=== PATIENT | male | born 1990 | race Caucasian/White ===

== ENCOUNTER 2018-09-11 17:35 | Emergency (ER) | payer SELFPAY ==
[2018-09-11 17:54] VITALS: BP 135/70; PULSE 69; RESP 16; TEMP 37; O2SAT 96
--- NOTE | 2018-09-11 18:34 | W.ED.GENAD ---
Discharge Plan Disposition Patient Disposition: HOME Condition: Good Discharge Details Chief Complaint: RespSymp Clinical Impression: URI (upper respiratory infection), Asthma Primary Care Provider: Deisy,Local ED Provider: [facility] Home Meds and New Rx's Prescriptions: New azithromycin 250 mg tablet 250 mg PO DAILY Qty: 6 RF: 0 prednisone 50 MG tablet 50 mg PO DAILY Qty: 10 RF: 0 No Action Ventolin HFA 90 mcg/actuation Hfa Aerosol Inhaler 2 puff RF: 0 Discharge Instructions Instructions: Asthma (ED), Acute Bronchitis (ED) Additional Instructions: Please take the medication as directed. Please take your inhaler every 4-6 hours for the next 2 days. if you notice any worsening of your symptoms, or any new symptoms such as vomiting, diarrhea, fever, chills, shortness of breath, chest pain, numbness, weakness, or fainting , please return immediately to the emergency department for reevaluation. Please follow up with your primary care provider as soon as possible for reassessment and reevaluation. As always, it was a pleasure participating in your medical care today. Discharge Data Discharge Date/Time-TO BE ENTERED AT DEPARTURE: 09/11/18 18:50 Medical Decision Making Is a 28-year-old male with a past medical history of asthma who presents for evaluation of upper respiratory complaints. He has had a runny nose, congestion, and a cough with green sputum for the last 3 weeks. Symptoms are slightly improved with inhaler. Patient states that his symptoms feel like they are just not getting any better. Physical exam demonstrates no significant abnormalities. Vital signs are reassuring. I feel that because of the longevity of his symptoms he is suffering from a combination of an asthma exacerbation requiring steroids in conjunction with may be a mild bronchitis versus pneumonia. Due to the longevity of his symptoms, productive green sputum, we will prescribe steroids, as well as azithromycin for suspected superimposed bacterial component. His signs and symptoms are clinically consistent with pulmonary embolism with a normal vital signs, no pleuritic chest pain, or other abnormalities. With reassuring lung sounds I do not feel that chest x-ray is indicated at this time. We discussed red flags which to return and the importance of close follow-up with his PCP and the patient understands. I have extensively reviewed the treatment plan and discharge instructions with the patient. I have addressed all patient concerns at this time. The patient was made aware of what symptoms to monitor for that would warrant a return to the emergency department. Discussed the plan with the patient, they demonstrate verbal understanding and agreement with our assessment and plan at this time. 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 States that last 3 weeks he has been having a runny nose, congestion, cough with green sputum, shortness of breath during his racing activities. He has been taking his albuterol inhaler which does improve his symptoms but his symptoms promptly returned soon as he is using his inhaler. He states that he has had episodes like this in the past requiring steroids however he does not have his normal doctor here because of his current traveling for skiing. Patient denies any fever or chills. He denies any history of pulmonary embolism or blood clot. He denies any other complaints or modifying factors at this time. He does not smoke. He denies any recent surgery. Related Data Home Medications Medication Instructions Recorded Confirmed albuterol sulfate [Ventolin HFA] 2 puff 09/11/18 azithromycin 250 mg PO DAILY #6 tab 09/11/18 prednisone 50 mg PO DAILY #10 tab 09/11/18 Previous Rx's Medication Instructions Recorded azithromycin 250 mg PO DAILY #6 tab 09/11/18 prednisone 50 mg PO DAILY #10 tab 09/11/18 Allergies Allergy/AdvReac Type Severity Reaction Status Date / Time No Known Allergies Allergy Unverified 09/11/18 17:58 General Stated Complaint: RespSymp JASS: 4 Review of Systems Review of Systems All systems reviewed & are unremarkable except as noted in HPI and below PFSH Social History Smoking/Tobacco Use Status: Never Exam Narrative Exam Narrative: 1.Const: Well-nourished, Well-developed, appearing stated age 2.Eyes: PERRL, no conjunctival injection, and symmetrical lids. 3.ENT: Atraumatic external nose and ears. Moist MM. Neck: Symmetric, trachea midline, No thyromegaly. 4.CVS: +S1/S2, No murmurs or gallops. Peripheral pulses 2+ and equal in all extremities. Brisk capillary refill in all extremities. 5.RESP: Unlabored respiratory effort. Clear to auscultation bilaterally. No wheezes rales or rhonchi 6.GI: Soft, Nontender/Nondistended, No hepatosplenomegaly. No guarding or rebound. 7.MSK: Normocephalic/Atraumatic, Extremities w/o deformity or ttp No cyanosis or clubbing, Normal movement of all extremities. No calf tenderness, no calf swelling. 8.Skin: Warm, Dry. No rashes or lesions. 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 Sensation grossly intact, no focal neurologic deficits. 10.Psych: (AAO) x3. Appropriate mood and affect Course Vital Signs Temperature 37 C 09/11/18 17:54 Pulse 69 09/11/18 17:54 Respiratory Rate 16 09/11/18 17:54 Blood Pressure 135/70 09/11/18 17:54 Pulse Oximetry 96 09/11/18 17:54 Temperature 37 C 09/11/18 17:54 Temperature Source Skin 09/11/18 17:54 Pulse 69 09/11/18 17:54 Respiratory Rate 16 09/11/18 17:54 Respiratory Effort Non-Labored 09/11/18 18:00 Blood Pressure 135/70 09/11/18 17:54 Blood Pressure Position Sitting 09/11/18 17:54 Pulse Oximetry 96 09/11/18 17:54 Oxygen Delivery Method Room Air 09/11/18 17:54 Oxygen Flow Rate 0 09/11/18 17:54 Pain Level 1 09/11/18 17:54
[2018-09-11 20:17] VITALS: BP 135/70; PULSE 69; RESP 16; TEMP 37; O2SAT 96
== END 2018-09-11 18:50 | disposition home or self-care (01) ==
PROVIDERS: Emergency Provider Student in an Organized Health Care Education/Training Program
DX: J06.9 Acute upper respiratory infection, unspecified (principal); J45.909 Unspecified asthma, uncomplicated
CPT/HCPCS: 99283